=== PATIENT | male | born 1940 | race Caucasian/White ===

== ENCOUNTER 2023-01-07 10:52 | Emergency (ER) | payer MEDICAID ==
[~2023-01-07] VITALS: Ht 157.5 cm; Wt 79.0 kg
[2023-01-07 11:07] VITALS: BP 191/76; PULSE 60; RESP 19; TEMP 98.3; O2SAT 98
[2023-01-07 11:40] LABS: BASOPHILS % 1.1 % (0.0-2.0); EOSINOPHILS % 1.4 % (0.0-5.0); HEMATOCRIT. 44.1 % (42.0-52.0); LYMPHOCYTES % 27.7 % (20.0-50.0); MEAN CORPUSCULAR HEMOGLOBIN 30.9 pg (28.0-32.0); MEAN CORPUSCULAR VOLUME 91.1 fL (80.0-94.0); MEAN PLATELET VOLUME 8.1 fl (7.4-10.4); NEUTROPHILS % 60.8 % (40.0-76.0); PLATELET 202 x1000/uL (130-400); RED BLOOD CELL COUNT 4.84 mill/uL (4.7-6.1); RED CELL DISTRIBUTION WIDTH 14.7 % (11.6-14.6); WHITE BLOOD COUNT 4.9 x1000/uL (4.5-11.0)
[2023-01-07 11:53] LABS: CHLORIDE 106 mEq/L (98-107); INDEX HEMOLYSI 1 (1-3); INDEX ICTERIC 1 (1-4); INDEX LIPEMIC 1 (1-3); SODIUM 138 mEq/L (136-145)
[2023-01-07 12:02] LABS: ALANINE AMINOTRANSFERASE 17 IU/L (13-61); ASPARTATE AMINOTRANSFERASE 7 IU/L (15-37); BILIRUBIN TOTAL 0.7 mg/dL (0.1-1.0); CALCIUM 8.9 mg/dL (8.5-10.1); CARBON DIOXIDE 29 mEq/L (21-32); CREATININE 0.7 mg/dL (0.6-1.3); GLUCOSE 127 mg/dL (70-105); PROTEIN TOTAL 7.4 g/dL (6.0-8.3); UREA NITROGEN BLOOD 13 mg/dL (7-21)
[2023-01-07] MEDS ORDERED: ACET-2708 MT (15:07)
[2023-01-07] MEDS ORDERED: TAMS-11 MT (15:07)
[2023-01-07] MEDS ORDERED: AMOX-494 MT (15:07)
== END 2023-01-07 16:22 | disposition home or self-care (01) ==
LOC: ER 10:52
DX: K03.81 Cracked tooth (principal); I10 Essential (primary) hypertension; E11.9 Type 2 diabetes mellitus without complications
CPT/HCPCS: 36415; 76770; 80053; 85025; 99284

== ENCOUNTER 2024-01-15 08:28 | Emergency (ER) | payer MEDICARE, MEDICAID ==
[~2024-01-15] VITALS: Ht 160 cm; Wt 69.0 kg
[~2024-01-15 08:28] MED LIST: ACET-2708 MT; TAMS-11 MT
[2024-01-15 08:41] VITALS: O2SAT 99
[2024-01-15] MEDS ORDERED: MECLIZINE 25MG TABLET PO ONE (09:00)
[2024-01-15 09:18] LABS: BASOPHILS % 0.8 % (0.0-2.0); EOSINOPHILS % 2.7 % (0.0-5.0); HEMATOCRIT. 44.9 % (42.0-52.0); LYMPHOCYTES % 28.9 % (20.0-50.0); MEAN CORPUSCULAR HEMOGLOBIN 31.3 pg (28.0-32.0); MEAN CORPUSCULAR HGB CONC 33.5 g/dL (31.0-37.0); MEAN CORPUSCULAR VOLUME 93.6 fL (80.0-94.0); MEAN PLATELET VOLUME 8.1 fl (7.4-10.4); MONOCYTES % 13.4 % (2.0-8.0); NEUTROPHILS % 54.2 % (40.0-76.0); PLATELET 245 x1000/uL (130-400); RED CELL DISTRIBUTION WIDTH 15.6 % (11.6-14.6); WHITE BLOOD COUNT 4.4 x1000/uL (4.5-11.0)
[2024-01-15 09:20] LABS: CHLORIDE 102 mEq/L (98-107); POTASSIUM 3.9 mEq/L (3.5-5.1); SODIUM 138 mEq/L (136-145)
[2024-01-15 09:21] LABS: CALCIUM 10.3 mg/dL (8.7-10.4); CARBON DIOXIDE 31 mEq/L (21-32)
[2024-01-15 09:26] LABS: CREATININE 0.9 mg/dL (0.6-1.3); GLUCOSE 106 mg/dL (70-105); UREA NITROGEN BLOOD 25 mg/dL (9-23)
[2024-01-15 09:27] LABS: TROPONIN I HIGH SENSITIVITY 11 ng/L (3.0-53)
[2024-01-15 09:28] LABS: ALANINE AMINOTRANSFERASE 11 IU/L (10-49); ALBUMIN 4.8 g/dL (3.2-4.8); ASPARTATE AMINOTRANSFERASE 14 IU/L (<34); BILIRUBIN DIRECT 0.1 mg/dL (<=3.0); BILIRUBIN TOTAL 0.5 mg/dL (0.1-1.0); PROTEIN TOTAL 7.5 g/dL (6.0-8.3)
[2024-01-15 09:43] LABS: ETHANOL BLOOD < 10 mg/dL (<10)
[2024-01-15 14:32] VITALS: BP 148/88; PULSE 83; RESP 16; TEMP 36.83628; O2SAT 99
[2024-01-15] MEDS: MECLIZINE 25MG TABLET PO SCH (14:32)
== END 2024-01-15 14:33 | disposition home or self-care (01) ==
LOC: ER 08:28
DX: S00.03XA Contusion of scalp, initial encounter (principal); E11.9 Type 2 diabetes mellitus without complications; I10 Essential (primary) hypertension; Z98.890 Other specified postprocedural states; X58.XXXA Exposure to other specified factors, initial encounter; Y93.89 Activity, other specified; Y92.89 Other specified places as the place of occurrence of the external cause; Y99.8 Other external cause status
CPT/HCPCS: 80076; 80048; 80320; 85025; 84484; 36415; 70450; 93005; 99284; J8597; G0480